=== PATIENT | female | born 1955 | race Caucasian/White ===

== ENCOUNTER 2017-03-21 08:40 | Outpatient (CLI) | payer OTHER ==
[2014-09-21 17:40] VITALS: BP 129/76
[2017-03-21 08:58] LABS: BASOPHILS % 0.5 (0.0-1.5); EOSINOPHILS % 5.8 % (0.0-6.8); MEAN CORPUSCULAR HEMOGLOBIN 31.6 pg (28.0-34.0); MEAN CORPUSCULAR VOLUME 99.3 fl (80.0-100.0); MONOCYTES % 5.6 % (0.0-11.0); NEUTROPHILS # 4.8 # k/uL (1.4-7.7)
[2017-03-21 09:44] LABS: eGFR (African) > 60; eGFR (Non-African) > 60
== END 2017-03-21 08:42 ==
LOC: LAB 08:40
PROVIDERS: ATTEND Internal Medicine Gastroenterology
DX: K57.32 Diverticulitis of large intestine without perforation or abscess without bleeding (principal); R74.8 Abnormal levels of other serum enzymes
CPT/HCPCS: 36415; 80053; 82306; 85025; 85651; 86140

== ENCOUNTER 2017-09-19 08:03 | Outpatient (CLI) | payer OTHER ==
[2014-09-21 17:40] VITALS: BP 129/76
[2017-09-19 09:13] LABS: BASOPHILS % 0.5 (0.0-1.5); EOSINOPHILS % 5.3 % (0.0-6.8); MEAN CORPUSCULAR HEMOGLOBIN 32.6 pg (28.0-34.0); MEAN CORPUSCULAR VOLUME 96.5 fl (80.0-100.0); MONOCYTES % 6.1 % (0.0-11.0); NEUTROPHILS # 3.8 # k/uL (1.4-7.7)
[2017-09-19 09:29] LABS: eGFR (African) > 60; eGFR (Non-African) > 60
== END 2017-09-19 08:04 ==
LOC: LAB 08:03
PROVIDERS: ATTEND Internal Medicine Gastroenterology
DX: K57.32 Diverticulitis of large intestine without perforation or abscess without bleeding (principal); K51.00 Ulcerative (chronic) pancolitis without complications
CPT/HCPCS: 36415; 80053; 82306; 85025; 85651; 86140

== ENCOUNTER 2018-03-31 08:39 | Outpatient (CLI) | payer OTHER ==
[2014-09-21 17:40] VITALS: BP 129/76
[2018-03-31 09:29] LABS: BASOPHILS % 0.6 (0.0-1.5); EOSINOPHILS % 9.3 % (0.0-6.8); MEAN CORPUSCULAR HEMOGLOBIN 31.1 pg (28.0-34.0); MEAN CORPUSCULAR VOLUME 96.5 fl (80.0-100.0); MONOCYTES % 4.6 % (0.0-11.0)
[2018-03-31 16:51] LABS: TOTAL PROTEIN 6.7 g/dL (6.0-8.5)
== END 2018-03-31 08:40 ==
LOC: LAB 08:39
PROVIDERS: ATTEND Internal Medicine Gastroenterology
DX: K57.32 Diverticulitis of large intestine without perforation or abscess without bleeding (principal); R74.8 Abnormal levels of other serum enzymes; K51.00 Ulcerative (chronic) pancolitis without complications
CPT/HCPCS: 36415; 80053; 82306; 85025; 85651; 86140; 86706

== ENCOUNTER 2018-06-19 12:27 | Outpatient (CLI) | payer OTHER ==
[2014-09-21 17:40] VITALS: BP 129/76
--- NOTE | 2018-06-19 18:50 | Diagnostic Imaging Report ---
CORBIN CAMARGO (INDY) - OP [facility] [id number] [facility].[address] [id number] Report Submission Date: Jun 19, 2018 12:55:15 PM CDT Patient Study Name: COREEN POON Date: Jun 19, 2018 12:29:22 PM CDT Modality Type: DX Gender: F Description: LOWER EXTREMITY : 57 Institution: [facility] Physician: CORBIN CAMARGO) - OP Right knee History: Pain AP, lateral and sunrise views of the right knee were obtained Chondrocalcinosis is present medially and laterally. Osteophytes are present along the medial and lateral femoral condyles and medial and lateral tibial plateaus. However, medial and lateral compartment joint space is maintained. There is minor narrowing of patellofemoral compartment joint space. There is no joint effusion. Impression: Chondrocalcinosis of the medial and lateral joint compartments with associated osteophytosis consistent with CPPD, but there is no significant joint space narrowing. No acute osseous abnormality. Electronically signed on Jun 19, 2018 12:55:15 PM CDT by: Dyana FAUST
== END 2018-06-19 12:30 ==
LOC: RAD 12:27
PROVIDERS: ATTEND Nurse Practitioner Family
DX: M25.561 Pain in right knee (principal)
CPT/HCPCS: 73562

== ENCOUNTER 2018-10-21 07:53 | Outpatient (CLI) | payer OTHER ==
[2014-09-21 17:40] VITALS: BP 129/76
[2018-10-21 09:34] LABS: MEAN CORPUSCULAR HEMOGLOBIN 31.9 pg (28.0-34.0)
[2018-10-21 09:35] LABS: BASOPHILS % 0.5 (0.0-1.5); EOSINOPHILS % 3.7 % (0.0-6.8); MONOCYTES % 6.3 % (0.0-11.0); NEUTROPHILS # 5.4 # k/uL (1.4-7.7)
[2018-10-24 04:09] LABS: TOTAL PROTEIN 6.1 g/dL (6.0-8.5)
== END 2018-10-21 07:55 ==
LOC: LAB 07:53
PROVIDERS: ATTEND Internal Medicine Gastroenterology
DX: K51.00 Ulcerative (chronic) pancolitis without complications (principal); R73.9 Hyperglycemia, unspecified
CPT/HCPCS: 36415; 80053; 82652; 83036; 85025; 85651; 86140

== ENCOUNTER 2019-12-02 12:49 | Outpatient (CLI) | payer OTHER ==
[2014-09-21 17:40] VITALS: BP 129/76
== END 2019-12-02 13:00 ==
LOC: RT 12:49
PROVIDERS: ATTEND Clinical Nurse Specialist Medical-Surgical
DX: M17.0 Bilateral primary osteoarthritis of knee (principal); E03.9 Hypothyroidism, unspecified; E66.9 Obesity, unspecified; I10 Essential (primary) hypertension; N95.9 Unspecified menopausal and perimenopausal disorder
CPT/HCPCS: 36415; 80053; 81002; 82306; 82465; 82607; 83718; 83721; 83735; 84100; 84439; 84443; 84478; 84550; 85025